=== PATIENT | female | born 1965 | race Two or more races ===

== ENCOUNTER 2016-05-13 20:55 | Emergency (ER) | payer MEDICAID ==
[~2016-05-13] VITALS: Ht 172.7 cm; Wt 90.7 kg
[~2016-05-13 20:55] MED LIST: ENALAPRIL; INSUPOW; METFPOW; TRAMADOL; [UNRECOGNIZED DRUG - CODE]
[2016-05-13 21:12] VITALS: BP 145/76
[2016-05-13 21:49] LABS: Basophils # (auto) 0 uL; Basophils % (auto) 0.6 % (0.0-2.0); DEFINITIVE VIEW TRANSMISSION; Eosinophils # (auto) 0 uL; Eosinophils % (auto) 0.5 % (0.0-7.0); Hemoglobin 10.9 g/dL (12.2-16.2); Lymphocytes # (auto) 1.5 uL; Lymphocytes % (auto) 20.8 % (10.0-50.0); Mean Corpuscular Hemoglobin 23.2 pg (28.0-32.0); Mean Corpuscular Volume 74.8 fL (80.0-100.0); Mean Platelet Volume 7.7 fL (7.4-10.4); Monocytes # (auto) 0.5 uL; Neutrophils # (auto) 5.2 uL; Neutrophils % (auto) 71.1 % (37.0-80.0); Platelet Count (auto) 438 10^3/uL (140-450); Red Cell Distribution Width 16.9 % (11.6-16.0); White Blood Cell 7.3 10^3/uL (4.4-10.8)
[2016-05-13 21:51] LABS: Albumin 3.2 g/dL (3.4-5.0); BUN/Creatinine Ratio 11.1; Calcium 8.2 mg/dL (8.5-10.1); Potassium 3.6 mmol/L (3.5-5.1)
[2016-05-13 22:04] LABS: Bilirubin, Total 0.2 mg/dL (0.2-1.0); Total Protein 7.2 g/dL (6.4-8.2)
== END 2016-05-14 04:45 | disposition left against medical advice (07) ==
LOC: ER 20:59
DX: M79.672 Pain in left foot (principal); L53.9 Erythematous condition, unspecified; Z53.21 Procedure and treatment not carried out due to patient leaving prior to being seen by health care provider; W57.XXXA Bitten or stung by nonvenomous insect and other nonvenomous arthropods, initial encounter; Y93.89 Activity, other specified; Y99.8 Other external cause status; Y92.89 Other specified places as the place of occurrence of the external cause
CPT/HCPCS: 36415; 80053; 85025